=== PATIENT | male | born 1990 | race African-American/Black ===

== ENCOUNTER → 2016-08-30 | Outpatient (CLI) | payer OTHER | END | disposition home or self-care (01) | LOC: C.RDSM 10:58 | PROVIDERS: ATTEND Physical Medicine & Rehabilitation Sports Medicine | DX: S62.025A Nondisplaced fracture of middle third of navicular [scaphoid] bone of left wrist, initial encounter for closed fracture (principal); X58.XXXA Exposure to other specified factors, initial encounter ==